=== PATIENT | female | born 1950 | race Caucasian/White ===

== ENCOUNTER → 2021-06-05 10:23 | Outpatient (CLI) | payer MEDICARE, SELFPAY ==
--- NOTE | ~2021-06-05 | MM_ITS ---
EXAMINATION: MM screening arielle BI w susannah HISTORY: Screening TECHNIQUE: Craniocaudal and mediolateral oblique 3-D tomosynthesis images were obtained and synthetic 2-D images were generated. CAD analysis was submitted and interpreted. COMPARISON: Comparison to multiple prior studies sequentially, with oldest reviewed study dated 09/17. BREAST PARENCHYMAL COMPOSITION: The breasts are heterogeneously dense, which may obscure small masses . FINDINGS: There is no evidence of suspicious mass, calcification, or architectural distortion to sugg est malignancy in either breast. There has been no suspicious interval change. IMPRESSION: 1. No mammographic evidence of malignancy. 2. Recommend routine screening mammography in one year. BI-RADS Category 1: Negative Reviewed, dictated and finalized at location A. 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
== END ==
PROVIDERS: PCP Family Medicine; Visit Provider Physician Assistant
DX: Z12.31 Encounter for screening mammogram for malignant neoplasm of breast (principal)
CPT/HCPCS: 77063; 77067

== ENCOUNTER 2023-06-29 20:48 | Emergency (ER) | payer MEDICARE, SELFPAY ==
[2023-06-29 21:08] VITALS: BP 139/84; PULSE 84; RESP 20; TEMP 36.4; O2SAT 98
[2023-06-29 22:15] LABS: Influenza A QL RT-PCR Negative (Negative); Influenza B QL RT-PCR Negative (Negative); RSV RNA, RT-PCR Negative (Negative); SARS-CoV-2 RNA PCR Negative (Negative)
--- NOTE | 2023-06-30 00:50 | ED.URI ---
HPI - URI/Sore Throat General Chief Complaint: Upper Respiratory Infection Stated Complaint: cough Time Seen by Provider: 06/29/23 23:41 History of Present Illness HPI Narrative: 73-year-old female reports with her family at bedside for an RSV test. Patient states her great granddaughter recently tested positive for RSV and she wants to check to see if she has RSV. She denies cough, congestion, chest pain or shortness of breath, fever, congestion. She does report a sore throat that she has had for a few days but does not desire strep testing. Related Data Allergies Allergy/AdvReac Type Severity Reaction Status Date / Time Penicillins Allergy Swelling Verified 06/29/23 21:33 of Lip/Tongue/Throat Review of Systems Review of Systems: CONSTITUTIONAL: Denies fever, chills, or sweats. EYES: Denies visual changes, redness, or discharge. ENT: See HPI CARDIOVASCULAR: Denies chest pain, palpitations, or edema. RESPIRATORY: Denies cough or dyspnea. GASTROINTESTINAL: Denies abdominal pain, nausea, vomiting, or diarrhea. GENITOURINARY: Denies dysuria or hematuria. SKIN: Denies rash or itching. MUSCULOSKELETAL: Denies back pain, joint pain, or myalgia. NEUROLOGIC: Denies headache, numbness, or weakness. PSYCHIATRIC: Denies anxiety or depression. Exam Narrative: GENERAL: Well-appearing, well-nourished, and in no acute distress. HEAD: Normocephalic, atraumatic. EYES: PERRLA and EOMI. ENT: Nares clear, no rhinorrhea or epistaxis. Mucous membranes moist. Posterior pharynx with mild erythema. No edema or tonsillar hypertrophy. Uvula is midline. Bilateral TMs are woodall nonbulging NECK: Supple. CHEST: Clear to auscultation. No respiratory distress. HEART: Regular rate and rhythm. No murmur heard. Normal peripheral pulses. ABDOMEN: Soft, nontender, nondistended, normal active bowel sounds. EXTREMITIES: Normal range of motion. No edema. SKIN: Warm, dry, no rash. NEURO: No focal deficits. Alert and oriented x3 Course Vital Signs Vital signs: Vital Signs Temperature 97.5 F L 06/29/23 21:08 Pulse Rate 84 06/29/23 21:08 Respiratory Rate 20 06/29/23 21:08 Blood Pressure 139/84 06/29/23 21:08 Pulse Oximetry 98 06/29/23 21:08 Oxygen Delivery Room Air 06/29/23 21:08 Temperature 97.5 F L 06/29/23 21:08 Pulse Rate 84 06/29/23 21:08 Respiratory Rate 20 06/29/23 21:08 Blood Pressure 139/84 06/29/23 21:08 Pulse Oximetry 98 06/29/23 21:08 Oxygen Delivery Room Air 06/29/23 21:08 MDM - URI/Sore Throat MDM Narrative Medical decision making narrative: 73-year-old female reports for evaluation for RSV test after her great granddaughter tested positive earlier in the day at our emergency department. Patient is asymptomatic other than a sore throat for the past few days. Exam is significant for the above. COVID, flu RSV testing are negative. She is declining strep testing or further workup. Will discharge home with close PCP follow-up. Strict ED return precautions discussed. She is agreeable to plan verbalized understanding. Discharged in stable condition. Lab Data Labs: Lab Results 06/29/23 Range/Units 21:14 Influenza A (RT-PCR) Negative (Negative) Influenza B (RT-PCR) Negative (Negative) RSV (RT-PCR) Negative (Negative) SARS-CoV-2 RNA (RT-PCR) Negative (Negative) Discharge Plan Discharge Clinical Impression: RSV exposure Patient Disposition: Home, Self-Care Condition: Stable Instructions: Antibiotic Form, Normal Exam (ED) Additional Instructions: you were evaluated in the emergency department for RSV exposure. RSV, COVID and flu test were negative. Please follow-up with your primary care provider as discussed. Return to the emergency department if he develops fever, cough, shortness of breath, chest pain or other concerning symptoms. Prescriptions: No Action gentamicin 0.3 % drops 1 drp LEFT EYE TID Qty: 5 0RF co
== END 2023-06-30 01:14 | disposition home or self-care (01) ==
PROVIDERS: Student in an Organized Health Care Education/Training Program; Emergency Provider Physician Assistant; PCP Family Medicine
DX: R05.9 Cough, unspecified (principal); Z20.828 Contact with and (suspected) exposure to other viral communicable diseases; Z20.822 Contact with and (suspected) exposure to COVID-19
CPT/HCPCS: 87637; 99283